=== PATIENT | male | born 1955 | race Caucasian/White ===

== ENCOUNTER 2021-07-16 15:50 | Inpatient (IN) ==
[2021-07-16] MEDS ORDERED: *HR* HYDROmorphone (PF) 1 MG/ML SYRINGE IVP ONE (16:59)
[2021-07-16] MEDS ORDERED: Acetaminophen 325 MG TABLET PO PRN (18:37)
[2021-07-16] MEDS ORDERED: *HR* OxyCODONE Immed Rel 5 MG TABLET PO PRN (18:37)
[2021-07-16] MEDS ORDERED: *HR* HYDROmorphone 2 MG/ML SYRINGE IVP ONE (18:37)
[2021-07-16] MEDS ORDERED: Ondansetron 4 MG/2 ML VIAL IVP PRN ×2 (18:39→19:40)
[2021-07-16] MEDS ORDERED: Melatonin 3 MG TABLET PO PRN (19:40)
[2021-07-16] MEDS ORDERED: Naloxone 0.4 MG/ML INJ IVP PRN (19:40)
[2021-07-16] MEDS: *HR* OxyCODONE Immed Rel 5 MG TABLET PO PRN (22:04)
[2021-07-16] MEDS: *HR* HYDROmorphone (PF) 1 MG/ML SYRINGE IVP PRN (23:45)
[2021-07-17] MEDS: *HR* Heparin 5,000 UNIT/ML VIAL SQ SCH ×4 (00:02→22:03)
[2021-07-17] MEDS: Cefuroxime PO 250 MG TABLET PO SCH ×3 (00:02→22:03)
[2021-07-17 05:18] LABS: Basophils # 0.1 K/mcL (0.0-0.2); Basophils % 0.4 %; Eosinophils # 0.2 K/mcL (0.0-0.6); Eosinophils % 1.2 %; Hematocrit 45.8 % (37.5-50.1); Hemoglobin 14.9 g/dL (12.9-16.9); Immature Granulocytes % 0.4 % (0-4); Lymphocytes # 2.6 K/mcL (0.6-4.6); Lymphocytes % 16.8 %; Mean Corpuscular HGB Conc 32.5 g/dL (31.6-35.5); Mean Corpuscular Hemoglobin 30.3 pg (28.0-33.3); Mean Corpuscular Volume 93.1 fL (83.0-100.0); Mean Platelet Volume 9.8 fL (9.4-12.4); Monocytes # 1.1 K/mcL (0.0-1.3); Monocytes % 7.2 %; Neutrophils # 11.5 K/mcL (1.6-8.9); Platelet Count 452 K/mcL (140-400); Red Blood Count 4.92 M/mcL (4.19-5.50); Red Cell Distribution Width 13.4 % (11.5-14.5); White Blood Count 15.6 K/mcL (4.3-11.1)
[2021-07-17 05:33] LABS: BUN/Creatinine Ratio 36 (6-26); Blood Urea Nitrogen 24 mg/dL (8-23); Calcium 9.2 mg/dL (8.6-10.3); Carbon Dioxide 21 mEq/L (23-29); Chloride 101 mEq/L (98-107); Glucose 117 mg/dL (70-105); INR 1.2; Magnesium 2.1 mg/dL (1.6-2.6); Osmolality,Calculated 285 (280-300); Potassium 4.1 mEq/L (3.5-5.1); Prothrombin Time 13.2 Seconds (9.4-12.1); Sodium 135 mEq/L (136-145); eGFR For African Americans > 60 (> 60); eGFR For Non-African Americans > 60 (> 60)
[2021-07-17] MEDS: *HR* HYDROmorphone (PF) 1 MG/ML SYRINGE IVP PRN ×2 (05:50→12:01)
[2021-07-17] MEDS ORDERED: Fluticasone Propionate Nasal 50 MCG/SPRAY BOTTLE NS PRN ×2 (07:57→17:13)
[2021-07-17] MEDS: *HR* OxyCODONE Immed Rel 5 MG TABLET PO PRN (08:18)
[2021-07-17] MEDS ORDERED: Loratadine 10 MG TABLET PO SCH (09:00)
[2021-07-17] MEDS ORDERED: BuPROPion XL (24 HR) 150 MG TABLET PO SCH (09:00)
[2021-07-17] MEDS ORDERED: Ezetimibe [Zetia] 10 MG Tablet PO SCH (09:00)
[2021-07-17] MEDS ORDERED: Venlafaxine XR (24 HR) 150 MG CAP.ER.24H PO SCH (09:00)
[2021-07-17] MEDS ORDERED: Fenofibrate 54 MG TABLET PO SCH (09:00)
[2021-07-17] MEDS ORDERED: Isosorbide MONOnitrate (24 HR) 60 MG TAB.ER.24H PO SCH (09:00)
[2021-07-17] MEDS ORDERED: carvediloL 6.25 MG TABLET PO SCH (09:00)
[2021-07-17] MEDS ORDERED: *HR* HYDROmorphone PF 0.5 MG/0.5 ML SYRINGE IVP PRN ×2 (09:14→14:09)
[2021-07-17] MEDS ORDERED: *HR* FentaNYL (PF) 100 MCG/2 ML VIAL IVP PRN (09:14)
[2021-07-17] MEDS ORDERED: *HR* FentaNYL (PF) 100 MCG/2 ML VIAL ONE (13:27)
[2021-07-17] MEDS ORDERED: Ondansetron 4 MG/2 ML VIAL ONE (13:27)
[2021-07-17] MEDS ORDERED: *HR* Propofol 200 MG/20 ML VIAL IVP ONE (13:28)
[2021-07-17] MEDS ORDERED: *HR* Midazolam HCl 2 MG/2 ML VIAL ONE (13:28)
[2021-07-17] MEDS ORDERED: Lidocaine -MPF 2% 2 ML VIAL ONE (13:29)
[2021-07-17] MEDS ORDERED: Ringers Solution, Lactated 1,000 ML IVC SCH ×2 (14:00→17:13)
[2021-07-17] MEDS ORDERED: Ropivacaine/PF 0.5% 30 ML VIAL ONE (14:09)
[2021-07-17] MEDS ORDERED: Albuterol 2.5 MG/3 ML NEBULIZER IH PRN (14:09)
[2021-07-17] MEDS ORDERED: Ondansetron 4 MG/2 ML VIAL IVP PRN ×3 (14:09→17:13)
[2021-07-17] MEDS ORDERED: *HR* OxyCODONE Immed Rel 5 MG TABLET PO PRN (14:09)
[2021-07-17] MEDS ORDERED: *HR* Labetalol 20 MG/4 ML SYRINGE IVP PRN (14:09)
[2021-07-17] MEDS ORDERED: ROPIVACAINE/PF/NS 0.25% 1 EACH SYRINGE INTRAART ONE (14:10)
[2021-07-17] MEDS ORDERED: Bupivacaine/EPI 1:200k 0.25% 50 ML VIAL ONE (14:19)
[2021-07-17] MEDS ORDERED: Bupivacaine 0.5%-Epi 1:200,000 50 ML VIAL ONE (14:20)
[2021-07-17] MEDS ORDERED: Acetaminophen IV 1,000 MG/100 ML BAG IVPB ONE (15:48)
[2021-07-17] MEDS ORDERED: Naloxone 0.4 MG/ML INJ IVP PRN (17:13)
[2021-07-17] MEDS ORDERED: Acetaminophen 325 MG TABLET PO PRN (17:13)
[2021-07-17] MEDS ORDERED: Melatonin 3 MG TABLET PO PRN (17:13)
[2021-07-17] MEDS: Isosorbide MONOnitrate (24 HR) 60 MG TAB.ER.24H PO SCH (22:04)
[2021-07-18] MEDS: *HR* Heparin 5,000 UNIT/ML VIAL SQ SCH ×3 (05:33→20:57)
[2021-07-18 06:45] LABS: Basophils % 0.2 %; Hematocrit 40.5 % (37.5-50.1); Hemoglobin 13.7 g/dL (12.9-16.9); Immature Granulocytes % 0.5 % (0-4); Lymphocytes # 0.9 K/mcL (0.6-4.6); Lymphocytes % 7.2 %; Mean Corpuscular HGB Conc 33.8 g/dL (31.6-35.5); Mean Corpuscular Hemoglobin 30.8 pg (28.0-33.3); Mean Platelet Volume 10.3 fL (9.4-12.4); Monocytes # 0.4 K/mcL (0.0-1.3); Monocytes % 3.1 %; Neutrophils # 11.6 K/mcL (1.6-8.9); Platelet Count 359 K/mcL (140-400); Red Blood Count 4.45 M/mcL (4.19-5.50); Red Cell Distribution Width 13.4 % (11.5-14.5)
[2021-07-18 07:03] LABS: BUN/Creatinine Ratio 34 (6-26); Blood Urea Nitrogen 19 mg/dL (8-23); Calcium 9.1 mg/dL (8.6-10.3); Carbon Dioxide 26 mEq/L (23-29); Chloride 102 mEq/L (98-107); Glucose 139 mg/dL (70-105); Magnesium 2.2 mg/dL (1.6-2.6); Osmolality,Calculated 285 (280-300); Phosphorous 3.2 mg/dL (2.7-4.5); Sodium 135 mEq/L (136-145); eGFR For African Americans > 60 (> 60); eGFR For Non-African Americans > 60 (> 60)
[2021-07-18] MEDS: carvediloL 6.25 MG TABLET PO SCH ×2 (08:13→15:19)
[2021-07-18] MEDS: BuPROPion XL (24 HR) 150 MG TABLET PO SCH ×2 (08:13→08:17)
[2021-07-18] MEDS: Isosorbide MONOnitrate (24 HR) 60 MG TAB.ER.24H PO SCH ×2 (08:14→20:57)
[2021-07-18] MEDS: Fenofibrate 54 MG TABLET PO SCH (08:14)
[2021-07-18] MEDS: Venlafaxine XR (24 HR) 150 MG CAP.ER.24H PO SCH (08:14)
[2021-07-18] MEDS: Cefuroxime PO 250 MG TABLET PO SCH ×2 (08:14→20:57)
[2021-07-18] MEDS: Loratadine 10 MG TABLET PO SCH (08:15)
[2021-07-18] MEDS ORDERED: Ezetimibe [Zetia] 10 MG Tablet PO SCH (09:00)
[2021-07-18] MEDS: *HR* OxyCODONE Immed Rel 5 MG TABLET PO PRN ×3 (13:41→23:55)
[2021-07-18] MEDS: *HR* HYDROmorphone (PF) 1 MG/ML SYRINGE IVP PRN ×2 (13:52→20:57)
[2021-07-18] MEDS ORDERED: *HR* OxyCODONE Immed Rel 5 MG TABLET PO ONE (17:02)
[2021-07-18] MEDS ORDERED: Chloraseptic Spray 177 ML BOTTLE MM PRN (22:27)
[2021-07-19] MEDS: *HR* HYDROmorphone (PF) 1 MG/ML SYRINGE IVP PRN ×3 (04:29→17:13)
[2021-07-19] MEDS: *HR* Heparin 5,000 UNIT/ML VIAL SQ SCH ×3 (04:29→20:39)
[2021-07-19] MEDS: Fenofibrate 54 MG TABLET PO SCH (09:18)
[2021-07-19] MEDS: BuPROPion XL (24 HR) 150 MG TABLET PO SCH (09:18)
[2021-07-19] MEDS: Isosorbide MONOnitrate (24 HR) 60 MG TAB.ER.24H PO SCH ×2 (09:19→20:37)
[2021-07-19] MEDS: Loratadine 10 MG TABLET PO SCH (09:19)
[2021-07-19] MEDS: carvediloL 6.25 MG TABLET PO SCH ×2 (09:19→17:09)
[2021-07-19] MEDS: Venlafaxine XR (24 HR) 150 MG CAP.ER.24H PO SCH (09:19)
[2021-07-19] MEDS: *HR* OxyCODONE Immed Rel 5 MG TABLET PO PRN ×2 (09:21→20:37)
[2021-07-19] MEDS: Cefuroxime PO 250 MG TABLET PO SCH ×2 (09:22→20:37)
[2021-07-20] MEDS: *HR* Heparin 5,000 UNIT/ML VIAL SQ SCH ×2 (05:44→14:21)
[2021-07-20] MEDS: Fenofibrate 54 MG TABLET PO SCH (08:35)
[2021-07-20] MEDS: *HR* OxyCODONE Immed Rel 5 MG TABLET PO PRN (08:37)
[2021-07-20] MEDS: BuPROPion XL (24 HR) 150 MG TABLET PO SCH (08:37)
[2021-07-20] MEDS: Isosorbide MONOnitrate (24 HR) 60 MG TAB.ER.24H PO SCH (08:38)
[2021-07-20] MEDS: Loratadine 10 MG TABLET PO SCH (08:38)
[2021-07-20] MEDS: carvediloL 6.25 MG TABLET PO SCH (08:38)
[2021-07-20] MEDS: Venlafaxine XR (24 HR) 150 MG CAP.ER.24H PO SCH (08:39)
[2021-07-20] MEDS: Cefuroxime PO 250 MG TABLET PO SCH (08:39)
[2021-07-20 11:12] VITALS: BP 130/79; PULSE 93; TEMP 98.4; O2SAT 95
== END 2021-07-20 14:39 | disposition home health service (06) | DRG 494 ==
LOC: 3ANU 15:50 → EMEROOARM 15:50 → SUATTDRO 19:27 → 3ANU 20:22
PROVIDERS: ADMIT Internal Medicine; ATTEND Internal Medicine